=== PATIENT | female | born 1955 | race Two or more races ===

== ENCOUNTER 2017-10-30 16:55 | Emergency (ER) | payer MEDICAID ==
[~2017-10-30] VITALS: Ht 147.3 cm; Wt 71.7 kg
[2017-10-30] MEDS ORDERED: oxyCODONE HCL SR 10MG TAB.SR.12H PO SCH (17:30)
[2017-10-30] MEDS ORDERED: IV NS 0.9% 1,000 ML BAG IV ONE (17:30)
[2017-10-30] MEDS ORDERED: IBUPROFEN 600 MG TABLET PO ONE ×2 (17:30→17:31)
--- NOTE | 2017-10-30 17:50 | NUR ---
[id number] FROM HOME: FLU LIKE SYMPTOMS, FEVER x 4 DAYS. SEEN BY MD FOR EVAL. CAME IN WITH FC- (ON FC FOR 2 YEARS, GETS REPLACED EVERY 2 MONTHS). SAFETY AND COMFORT MEASURES PROVIDED. WILL MONITOR.
[2017-10-30 17:54] LABS: BASOPHILS % (AUTO) 1.1 % (0.0-2.0); EOSINOPHILS % (AUTO) 0.4 % (0.0-6.0); HEMATOCRIT 37 % (33-45); HEMOGLOBIN 13.1 g/dL (11.5-14.8); LYMPHOCYTES # (AUTO) 1.2 /CMM (0.8-4.8); LYMPHOCYTES % (AUTO) 33.7 % (20.0-44.0); MEAN CORPUSCULAR HEMOGLOBIN 31 PG (26.0-33.0); MEAN CORPUSCULAR HGB CONC 36 g/dl (31.0-36.0); MEAN CORPUSCULAR VOLUME 86 fL (82-100); MONOCYTES # (AUTO) 0.3 /CMM (0.1-1.30); MONOCYTES % (AUTO) 9.8 % (2.0-12.0); PLATELET COUNT (AUTO) 422 /CMM (150-450); RDW COEFFICIENT OF VARIATION 13.2 (11.5-15.0); WHITE BLOOD COUNT (AUTO) 3.5 K/uL (4.3-11.0)
--- NOTE | 2017-10-30 18:00 | NUR ---
IV ACCESS STARTED. BLOOD AND [id number] DRAWN.
[2017-10-30 18:01] LABS: CALCIUM, SERUM 8.7 mg/dL (8.5-10.1); CARBON DIOXIDE 28 mmol/L (21-32); CHLORIDE 93 mmol/L (98-107); CREATININE 0.4 mg/dL (0.6-1.3); GLUCOSE 117 mg/dL (74-106); POTASSIUM 3.8 mmol/L (3.5-5.1); SODIUM SERUM 128 mmol/L (136-145); UREA NITROGEN, BLOOD 7 mg/dL (7-18)
[2017-10-30 18:08] LABS: TROPONIN I < 0.017 ng/mL (0.00-0.056)
--- NOTE | 2017-10-30 18:14 | NUR ---
DC'D OLD FC. NEW FC IN PLACED, WAITING FOR URINE SAMPLE.
[2017-10-30 18:16] LABS: ALANINE AMINOTRANSFERASE 150 U/L (12-78); ALBUMIN 3.5 g/dL (3.4-5.0); ALKALINE PHOSPHATASE 361 U/L (46-116); ASPARTATE AMINOTRANSFERASE 127 U/L (15-37); BILIRUBIN,TOTAL 0.3 mg/dL (0.2-1.0); TOTAL PROTEIN, SERUM 8.7 g/dL (6.4-8.2)
[2017-10-30] MEDS ORDERED: ALBUTEROL FS 2.5 MG/3 ML VIAL.NEB ONE (18:52)
[2017-10-30] MEDS ORDERED: ALBUTEROL FS 2.5 MG/3 ML VIAL.NEB NEB ONE (19:00)
[2017-10-30 19:51] LABS: APPEARANCE,URINE Clear (CLEAR); BILIRUBIN,URINE Negative (NEGATIVE); BLOOD, URINE Small Ery/uL (NEGATIVE); COLOR,URINE Yellow (YELLOW); KETONES,URINE Trace (NEGATIVE); LEUKOCYTE ESTERASE ,URINE Small (NEGATIVE); NITRITE, URINE Negative (NEGATIVE); PROTEIN,URINE Negative (NEGATIVE); UGLUCOSE Negative (NEGATIVE); UROBILINOGEN,URINE 0.2 EU/dL (0.2)
--- NOTE | 2017-10-30 19:51 | NUR ---
DAUGHTER'S NAME IS EUSEBIO HCURCH, CONTACT NUMBER [phone].
[2017-10-30 20:12] LABS: BACTERIA,URINE Few /HPF (None Seen); SQUAMOUS EPITHELIAL CELL,UR Few /HPF (None Seen)
[2017-10-30] MEDS ORDERED: DEXAMETHASONE SOD PHOSPHATE 10 MG/ML VIAL IV ONE (20:30)
[2017-10-30] MEDS ORDERED: DEXAMETHASONE SOD PHOSPHATE 10 MG/ML VIAL ONE (20:49)
--- NOTE | 2017-10-30 21:15 | NUR ---
IV removed. Catheter intact and site benign. Pressure and 4x4 applied to site. No bleeding noted.Patient discharged to home in stable condition. Written and verbal after care instructions given. Patient verbalizes understanding of instruction. VSS. Nad noted. Patient accompanied by family. No further complaints.
[2017-10-30 21:29] VITALS: BP 130/68
== END 2017-10-30 21:30 | disposition home or self-care (01) ==
LOC: ER 16:56
DX: J20.9 Acute bronchitis, unspecified (principal); M54.30 Sciatica, unspecified side
CPT/HCPCS: 36415; 71010; 80048; 80076; 81001; 84484; 85025; 87040 ×2; 93005; 94640; 96361; 96374; 99285; A4606; J1100; J7030; J7040; Z7610; 81000-TC